=== PATIENT | female | born 1945 | race Caucasian/White ===

== ENCOUNTER → 2023-05-19 | Outpatient (CLI) | payer MEDICARE ==
[~2023-05-19] MED LIST: ATEN25TA PO; ATOR40TA71 PO; CHOL500045 PO; CRAN1TAB2 PO; FLUT1DIS3 IH; HYDR25TA PO; MONT-39 PO; MULT-1203 PO; TRAM50TA4 PO
[2023-05-19 15:02] LABS: HEMATOCRIT 33.7 % (36-48); PLATELET COUNT (AUTO) 216 K/uL (130-400)
[2023-05-19 15:09] LABS: PFA INTERPRETATION PFA INTERPRETATION; PLATELET FUNCTION ANALYSIS ADP 90 SEC (62-100); PLATELET FUNCTION ANALYSIS EPI 114 SEC (55-192)
== END | disposition home or self-care (01) ==
LOC: LAB 13:58
PROVIDERS: ATTEND Internal Medicine
DX: D68.09 Other von Willebrand disease (principal)
CPT/HCPCS: 36415; 85576

== ENCOUNTER → 2023-07-11 | Outpatient (CLI) | payer MEDICARE | END | disposition home or self-care (01) | LOC: SHCH 13:56 | PROVIDERS: ATTEND Internal Medicine | DX: I65.23 Occlusion and stenosis of bilateral carotid arteries (principal); R01.1 Cardiac murmur, unspecified; I10 Essential (primary) hypertension | CPT/HCPCS: 93880 ==

== ENCOUNTER → 2023-07-15 | Outpatient (CLI) | payer MEDICARE | END | disposition home or self-care (01) | LOC: RAH 14:34 | PROVIDERS: ATTEND Internal Medicine | DX: I08.0 Rheumatic disorders of both mitral and aortic valves (principal); I11.9 Hypertensive heart disease without heart failure | CPT/HCPCS: 93306 ==

== ENCOUNTER → 2023-09-09 | Outpatient (CLI) | payer MEDICARE ==
[~2023-09-09] MED LIST changes: +AMLO-258 PO; +AMOX1TAB16 PO; +AZIT250T PO; -CHOL500045 PO; +CLOP75TA32 PO; -CRAN1TAB2 PO; -FLUT1DIS3 IH; +FURO20TA4 PO; -HYDR25TA PO; +IPRA3AMP24 IH; +METO25TA6 PO; +PRED20B PO; -TRAM50TA4 PO
[2023-09-09 12:24] LABS: ALBUMIN 3.7 g/dL (3.5-5.0); BILIRUBIN,TOTAL 0.4 mg/dL (0.2-1.0); CREATININE 1.3 mg/dL (0.5-1.0); POTASSIUM 4.4 mmol/L (3.5-5.1); TOTAL PROTEIN, SERUM 6.9 g/dL (6.0-8.3)
== END | disposition home or self-care (01) ==
LOC: LAB 09:51
PROVIDERS: ATTEND Internal Medicine
DX: I51.9 Heart disease, unspecified (principal)
CPT/HCPCS: 36415; 80053; 83880

== ENCOUNTER → 2024-05-10 | Outpatient (CLI) | payer MEDICARE ==
[~2024-05-10] MED LIST changes: -AMLO-258 PO; -AMOX1TAB16 PO; +APIX2.5T PO; -ATEN25TA PO; -AZIT250T PO; -FURO20TA4 PO; +FURO40TA5 PO; -MULT-1203 PO; +PRED10TA3 PO; -PRED20B PO; +SACU1TAB PO
== END | disposition home or self-care (01) ==
LOC: SHCH 11:13
PROVIDERS: ATTEND Internal Medicine
DX: I42.8 Other cardiomyopathies (principal); I51.3 Intracardiac thrombosis, not elsewhere classified
CPT/HCPCS: 93308